=== PATIENT | female | born 1945 | race Caucasian/White ===

== ENCOUNTER → 2020-04-30 09:29 | Outpatient (CLI) | payer MEDICARE, OTHER ==
[2016-06-22 10:10] VITALS: BMI 26.7
[~2020-04-30 09:29] MED LIST: ASPIRIN81 MG PO; CLARITIN 10 MG10 MG PO; LOSARTAN POTASS25 MG PO; MAXALT MLT10 MG/TAB PO; PLAVIX75 MG PO; VITAMIN D31000 UNIT PO; ZYRTEC10 MG PO
== END | disposition home or self-care (01) ==
LOC: D.HCCECHO 09:29
PROVIDERS: ATTEND Internal Medicine Cardiovascular Disease
DX: I25.119 Atherosclerotic heart disease of native coronary artery with unspecified angina pectoris (principal)